=== PATIENT | female | born 1945 | race Caucasian/White ===

== ENCOUNTER → 2016-10-15 | Outpatient (CLI) | payer OTHER ==
--- NOTE | ~2016-10-15 | EKG ---
[address] [address] ELECTROCARDIOGRAM REPORT Name: FERNANDO ALMANZA Room #: [facility]ICINEJese#: [id number] Admission: 10/15/16 Attend Phys: Qing Robledo MD Discharge: Date of : 49 Report #: [id number] THIS REPORT FOR: //name// [facility] Test Date: 2016-10-15 Test Time: 11:56:02 Pat Name: FERNANDO ALMANZA Department: Room: Gender: F [employer] Pneum[employer]: JAYA : 1945 Requested By: Qing Robledo Order Number: [id number] MD: Stfe Craig Measurements Intervals [place] Rate: 67 P: 29 NM: 136 QRS: 19 QRSD: 90 T: 41 QT: 397 QTc: 419 Interpretive Statements Sinus rhythm RSR' in V1 or V2, probably normal variant No previous ECG available for comparison Electronically Signed On 10-16-2016 18:05:52 CDT by Stef Craig [email or web address] <ELECTRONICALLY SIGNED> By: Stef Craig MD, [facility] 10/16/16 1805 1156 [id number] Stef Craig MD, FACC /EPI
== END ==
LOC: CV 11:24
DX: Z01.818 Encounter for other preprocedural examination (principal)